=== PATIENT | female | born 1950 | race African-American/Black ===

== ENCOUNTER 2025-06-11 18:01 | Inpatient (IN) | payer BC ==
[~2025-06-11] VITALS: Ht 172.7 cm; Wt 68.5 kg
[2025-06-11 18:05] VITALS: O2SAT 99
[2025-06-11] MEDS: CEFTRIAXONE 1GM/50ML 50 ML IV ONE (18:48)
[2025-06-11] MEDS: SODIUM CHLORIDE 0.9% 1,000 ML IV ONE (18:48)
[2025-06-11 19:24] LABS: BASOPHILS % 0.6 % (0.0-2.0); EOSINOPHILS % 2.2 % (0.0-5.0); HEMATOCRIT. 36.5 % (36.0-48.0); HEMOGLOBIN. 11.9 g/dL (12.0-16.0); LYMPHOCYTES % 10.7 % (20.0-50.0); MEAN PLATELET VOLUME 7.9 fl (7.4-10.4); MONOCYTES % 3.9 % (2.0-8.0); NEUTROPHILS % 82.6 % (40.0-76.0); PLATELET 231 x1000/uL (130-400); RED BLOOD CELL COUNT 3.78 mill/uL (4.2-5.4); RED CELL DISTRIBUTION WIDTH 13.6 % (11.6-14.6)
[2025-06-11 19:37] LABS: CREATININE 0.8 mg/dL (0.6-1.0)
[2025-06-11 19:38] LABS: PROTEIN TOTAL 7.5 g/dL (6.0-8.3); UREA NITROGEN BLOOD 10 mg/dL (9-23)
[2025-06-11 19:39] LABS: ASPARTATE AMINOTRANSFERASE 92 IU/L (<34)
[2025-06-11 19:40] LABS: BILIRUBIN DIRECT 0.2 mg/dL (<=3.0); BILIRUBIN TOTAL 0.6 mg/dL (0.1-1.0); INR 1.2
[2025-06-11 19:46] LABS: TROPONIN I HIGH SENSITIVITY 37 ng/L (3.0-34)
[2025-06-11] MEDS: CLOPIDOGREL 75MG TABLET PO ONE (20:39)
[2025-06-11] MEDS: POTASSIUM CHLORIDE 20MEQ TABLET SR PO ONE (20:39)
[2025-06-11] MEDS: MAGNESIUM 2 G PREMIX 50 ML IV ONE (20:39)
[2025-06-11] MEDS: ASPIRIN 325MG EC TABLET PO ONE (20:40)
[2025-06-12] MEDS ORDERED: IPRATROPIUM/ALBUTEROL 0.5-3(2.5)MG/3ML NEB HHN PRN
[2025-06-12] MEDS ORDERED: POTASSIUM CHLORIDE 10MEQ TABLET SR PO NR
[2025-06-12] MEDS ORDERED: ONDANSETRON HCL 4MG/2ML INJ IV PRN
[2025-06-12] MEDS ORDERED: CLONIDINE 0.1MG TABLET PO PRN
[2025-06-12] MEDS ORDERED: GUAIFENESIN 200MG/10ML SUGAR FREE UDC PO PRN
[2025-06-12] MEDS ORDERED: MAGNESIUM 2 G PREMIX 50 ML IV NR
[2025-06-12 04:31] VITALS: BP 156/97; PULSE 94; RESP 14; TEMP 36.6404
[2025-06-12] MEDS: POTASSIUM CHLORIDE 10MEQ TABLET SR PO NR (05:17)
[2025-06-12] MEDS: SODIUM CHLORIDE 0.45% 1,000 ML IV SCH (05:17)
[2025-06-12] MEDS: MAGNESIUM 2 G PREMIX 50 ML IV NR (05:18)
[2025-06-12 05:45] LABS: VITAMIN B12 SERUM 959 pg/mL (211-911)
[2025-06-12 06:00] VITALS: BP 135/84; PULSE 86; RESP 13; TEMP 36.6; O2SAT 96
[2025-06-12 08:00] VITALS: BP 123/75; PULSE 89; RESP 13; TEMP 36.4; O2SAT 96
[2025-06-12] MEDS: MULTIVITAMINS,THER W-MINERALS TABLET PO SCH (09:55)
[2025-06-12] MEDS: DOXYCYCLINE HYCLATE 100MG CAPSULE PO SCH (09:55)
[2025-06-12] MEDS: ASPIRIN 81MG EC TABLET PO SCH (09:55)
[2025-06-12] MEDS: FOLIC ACID 1MG TABLET PO SCH (09:56)
[2025-06-12] MEDS: ASCORBIC ACID 250 MG TABLET PO SCH (09:56)
[2025-06-12] MEDS: ZINC SULFATE 220 MG ( 50 ) CAPSULE PO SCH (09:56)
[2025-06-12] MEDS: THIAMINE HCL 100MG TABLET PO SCH (09:56)
[2025-06-12] MEDS: AMOXICILLIN/POTASSIUM CLAVULANATE 875/125MG TAB PO SCH (09:56)
[2025-06-12] MEDS: ENOXAPARIN 40MG/0.4ML SYR SUBCUT SCH (09:57)
[2025-06-12] MEDS: PANTOPRAZOLE 40MG DR TABLET PO SCH (10:01)
[2025-06-12] MEDS: FERROUS SULFATE 325MG TABLET PO SCH (10:01)
[2025-06-12] MEDS: KCL 20MEQ/100ML PREMIX 100 ML IV SCH (10:02)
[2025-06-12] MEDS: ACETAMINOPHEN 325MG TABLET PO PRN (10:43)
[2025-06-12 11:47] LABS: BASOPHILS % 0.8 % (0.0-2.0); EOSINOPHILS % 7.4 % (0.0-5.0); HEMATOCRIT. 32.8 % (36.0-48.0); HEMOGLOBIN. 10.9 g/dL (12.0-16.0); LYMPHOCYTES % 13.0 % (20.0-50.0); MEAN PLATELET VOLUME 7.9 fl (7.4-10.4); MONOCYTES % 4.6 % (2.0-8.0); NEUTROPHILS % 74.2 % (40.0-76.0); PLATELET 206 x1000/uL (130-400); RED BLOOD CELL COUNT 3.43 mill/uL (4.2-5.4); RED CELL DISTRIBUTION WIDTH 13.6 % (11.6-14.6)
[2025-06-12 12:00] VITALS: BP 125/85; PULSE 88; RESP 13; TEMP 36.6; O2SAT 96
[2025-06-12 12:02] LABS: TROPONIN I HIGH SENSITIVITY 28 ng/L (3.0-34)
[2025-06-12 12:04] LABS: CREATININE 0.8 mg/dL (0.6-1.0)
[2025-06-12 12:05] LABS: LDL CHOLESTEROL 38 mg/dL (5-100); PROTEIN TOTAL 6.7 g/dL (6.0-8.3); TRIGLYCERIDE 80 mg/dL (0-150); UREA NITROGEN BLOOD 10 mg/dL (9-23)
[2025-06-12 12:06] LABS: ASPARTATE AMINOTRANSFERASE 65 IU/L (<34); T4 FREE 1.72 ng/dL (0.89-1.76)
[2025-06-12 12:07] LABS: BILIRUBIN DIRECT 0.2 mg/dL (<=3.0); BILIRUBIN TOTAL 0.5 mg/dL (0.1-1.0); PHOSPHORUS 2.0 mg/dL (2.5-4.9)
[2025-06-12 14:24] LABS: *AMPHETAMINES SCREEN URINE NEGATIVE (NEGATIVE); *BARBITURATES SCREEN URINE NEGATIVE (NEGATIVE); *BENZODIAZEPINES SCREEN URINE NEGATIVE (NEGATIVE); *COCAINE SCREEN URINE NEGATIVE (NEGATIVE); CANNABINOID URINE SCREEN NEGATIVE (NEGATIVE); ECSTASY MDMA SCREEN URINE CONF.TEST INDICATED (NEGATIVE); METHADONE URINE SCREEN NEGATIVE (NEGATIVE); OPIATES URINE SCREEN NEGATIVE (NEGATIVE); PHENCYCLIDINE URINE SCREEN NEGATIVE (NEGATIVE)
[2025-06-12 14:26] LABS: CLARITY URINE CLEAR (CLEAR); COLOR URINE DARK YELLOW (YELLOW); GLUCOSE URINE NEGATIVE (NEGATIVE); KETONES URINE TRACE (NEGATIVE); LEUKOCYTE ESTERASE URINE TRACE (NEGATIVE); NITRITE URINE NEGATIVE (NEGATIVE); OCCULT BLOOD URINE TRACE (NEGATIVE); PH URINE 5.5 (4.5-8.0); PROTEIN URINE 1+ (NEGATIVE); SPECIFIC GRAVITY URINE 1.030 (1.005-1.030); UROBILINOGEN URINE 1.0 E.U./dL (0.2-1.0)
[2025-06-12 14:56] LABS: BACTERIA URINE 2+; SQUAMOUS EPITHELIAL CELL URINE FEW /lpf (RARE/1+)
[2025-06-12 14:57] LABS: RBC URINE 0-2 /hpf (0-2); WBC URINE 0-2 /hpf (0-2)
[2025-06-12] MEDS ORDERED: VENL75CA4 MT (15:16)
[2025-06-12] MEDS ORDERED: TRAM50TA3 MT (15:16)
[2025-06-12] MEDS ORDERED: TOLT4CAP27 MT (15:16)
[2025-06-12] MEDS ORDERED: ASPI-1406 MT (15:16)
[2025-06-12] MEDS ORDERED: IBUP-1455 MT (15:16)
[2025-06-12] MEDS ORDERED: VENL75CA4 PO (15:16)
[2025-06-12] MEDS ORDERED: LORA2TAB95 MT (15:16)
[2025-06-12] MEDS ORDERED: APIX5TAB MT (15:16)
[2025-06-12] MEDS ORDERED: OMEP20CA14 MT (15:16)
[2025-06-12] MEDS ORDERED: CEL200 MT (15:16)
[2025-06-12] MEDS ORDERED: GABA-290 MT (15:16)
[2025-06-12] MEDS ORDERED: BUPR-102 MT (15:16)
[2025-06-12] MEDS ORDERED: ATOR-388 MT (15:16)
[2025-06-12] MEDS: DOCUSATE SODIUM 100MG CAPSULE PO PRN (15:43)
[2025-06-12 16:00] VITALS: BP 137/68; PULSE 92; RESP 16; O2SAT 96
[2025-06-12] MEDS: POTASSIUM PHOSPHATE 15 MMOL in DEXT 5% WATER 245 ML IV NR (17:09)
[2025-06-12 18:38] LABS: TROPONIN I HIGH SENSITIVITY 23 ng/L (3.0-34)
[2025-06-12 20:01] VITALS: BP 140/93; PULSE 95; RESP 18; TEMP 37.1; O2SAT 94
[2025-06-12] MEDS: ATORVASTATIN CALCIUM 40MG TABLET PO SCH (20:28)
[2025-06-12] MEDS: ARIPIPRAZOLE 2MG TABLET PO SCH (20:28)
[2025-06-12] MEDS: VENLAFAXINE HCL 37.5MG SR CAPSULE 24HR PO SCH (22:13)
[2025-06-13] VITALS (8 sets, daily range): BP systolic 93–147; BP diastolic 76–101; PULSE 84–100; RESP 14–21; TEMP 36.6–37.2; O2SAT 95–99
[2025-06-13] MEDS: MELATONIN 3MG TABLET PO PRN (02:10)
[2025-06-13 07:14] LABS: BASOPHILS % 0.3 % (0.0-2.0); EOSINOPHILS % 8.5 % (0.0-5.0); HEMATOCRIT. 29.9 % (36.0-48.0); HEMOGLOBIN. 10.1 g/dL (12.0-16.0); LYMPHOCYTES % 13.1 % (20.0-50.0); MEAN PLATELET VOLUME 8.0 fl (7.4-10.4); MONOCYTES % 6.3 % (2.0-8.0); NEUTROPHILS % 71.8 % (40.0-76.0); PLATELET 183 x1000/uL (130-400); RED BLOOD CELL COUNT 3.15 mill/uL (4.2-5.4); RED CELL DISTRIBUTION WIDTH 13.7 % (11.6-14.6)
[2025-06-13 07:33] LABS: CREATININE 0.7 mg/dL (0.6-1.0)
[2025-06-13 07:34] LABS: UREA NITROGEN BLOOD 7 mg/dL (9-23)
[2025-06-13 07:36] LABS: PHOSPHORUS 2.1 mg/dL (2.5-4.9)
[2025-06-13] MEDS ORDERED: VENLAFAXINE HCL 37.5MG SR CAPSULE 24HR PO SCH (09:00)
[2025-06-14] VITALS: PULSE 96; RESP 22; TEMP 36.8; O2SAT 99
[2025-06-14 03:44] VITALS: BP 135/58; PULSE 90; RESP 18; TEMP 36.2; O2SAT 97
[2025-06-14 08:00] VITALS: BP 136/79; PULSE 91; RESP 16; TEMP 36.4; O2SAT 96
[2025-06-14 11:19] LABS: BASOPHILS % 0.5 % (0.0-2.0); EOSINOPHILS % 6.4 % (0.0-5.0); HEMATOCRIT. 33.7 % (36.0-48.0); HEMOGLOBIN. 11.1 g/dL (12.0-16.0); LYMPHOCYTES % 18.5 % (20.0-50.0); MEAN PLATELET VOLUME 8.2 fl (7.4-10.4); MONOCYTES % 4.9 % (2.0-8.0); NEUTROPHILS % 69.7 % (40.0-76.0); PLATELET 208 x1000/uL (130-400); RED BLOOD CELL COUNT 3.52 mill/uL (4.2-5.4); RED CELL DISTRIBUTION WIDTH 13.7 % (11.6-14.6)
[2025-06-14 11:32] LABS: CREATININE 0.7 mg/dL (0.6-1.0); UREA NITROGEN BLOOD < 5 mg/dL (9-23)
[2025-06-14 12:00] VITALS: BP 147/54; PULSE 84; RESP 16; TEMP 36; O2SAT 99
[2025-06-14 16:00] VITALS: BP 138/85; PULSE 98; RESP 17; TEMP 35.6; O2SAT 99
[2025-06-14] MEDS: ACETAMINOPHEN 325MG TABLET PO PRN (18:34)
[2025-06-14 20:00] VITALS: BP 131/67; PULSE 89; RESP 18; TEMP 36.4; O2SAT 99
[2025-06-15] VITALS (7 sets, daily range): BP systolic 121–155; BP diastolic 46–88; PULSE 76–94; RESP 18–19; TEMP 35.9–36.7; O2SAT 95–100
[2025-06-15] MEDS: VENLAFAXINE HCL 37.5MG SR CAPSULE 24HR PO SCH (09:27)
== END 2025-06-15 21:15 | DRG 70 ==
LOC: ER 18:01 → 5EST 20:40 → EDBEDREQ 20:44 → EDBEDREQTM 20:44 → ENRESERV 06-12 02:27 → 6WST 06-12 18:15 → 5EST 06-12 18:34 → 6WST 06-14 02:33
PROVIDERS: ADMIT Internal Medicine; ATTEND Internal Medicine
DX: G93.41 Metabolic encephalopathy (principal); I21.4 Non-ST elevation (NSTEMI) myocardial infarction; L89.893 Pressure ulcer of other site, stage 3; L89.154 Pressure ulcer of sacral region, stage 4; E87.0 Hyperosmolality and hypernatremia; M62.82 Rhabdomyolysis; E11.65 Type 2 diabetes mellitus with hyperglycemia; D64.9 Anemia, unspecified; I11.0 Hypertensive heart disease with heart failure; J44.89 Other specified chronic obstructive pulmonary disease; F32.9 Major depressive disorder, single episode, unspecified; I69.30 Unspecified sequelae of cerebral infarction; R62.7 Adult failure to thrive; I50.9 Heart failure, unspecified; E86.0 Dehydration; E83.42 Hypomagnesemia; E87.6 Hypokalemia; Z68.20 Body mass index [BMI] 20.0-20.9, adult; F41.9 Anxiety disorder, unspecified; L22 Diaper dermatitis; R32 Unspecified urinary incontinence; Z74.01 Bed confinement status; Z79.82 Long term (current) use of aspirin; Z88.0 Allergy status to penicillin; Z88.2 Allergy status to sulfonamides; Z88.5 Allergy status to narcotic agent; Z91.419 Personal history of unspecified adult abuse; Z88.8 Allergy status to other drugs, medicaments and biological substances
CPT/HCPCS: 36415; 71045; 80048; 80061; 80076; 80305; 81003; 82140; 82550; 82607; 82728; 83540; 83550; 83605; 83735; 83880; 84100; 84145; 84439; 84443; 84484; 85025; 85044; 86850; 86900; 87070; 87426; 93005; 93970; 96365; 97162; 97165; 99291; A4606; G0378; J0696; J1650; J3475; J3480; J3490; J7030; J7060